=== PATIENT | female | born 1985 | race Caucasian/White ===

== ENCOUNTER → 2023-08-23 | Outpatient (CLI) | payer OTHER | LOC: MHCPAIN 13:17 | DX: M47.812 Spondylosis without myelopathy or radiculopathy, cervical region (principal); M48.02 Spinal stenosis, cervical region | CPT/HCPCS: G0463 ==

== ENCOUNTER → 2023-12-25 | Outpatient (CLI) | payer OTHER | LOC: MHCPAIN 10:53 | DX: M47.22 Other spondylosis with radiculopathy, cervical region (principal); M48.02 Spinal stenosis, cervical region; M79.2 Neuralgia and neuritis, unspecified; M54.81 Occipital neuralgia; M54.2 Cervicalgia | CPT/HCPCS: G0463 ==

== ENCOUNTER → 2024-02-12 | Outpatient (CLI) | payer OTHER | LOC: MHCPAIN 13:03 | DX: M54.12 Radiculopathy, cervical region (principal); M47.812 Spondylosis without myelopathy or radiculopathy, cervical region; M48.02 Spinal stenosis, cervical region; M54.2 Cervicalgia; M54.81 Occipital neuralgia; M25.512 Pain in left shoulder | CPT/HCPCS: G0463 ==